=== PATIENT | male | born 1935 | race Two or more races ===

== ENCOUNTER 2018-04-06 23:02 | Inpatient (IN) | payer OTHER ==
[~2018-04-06] VITALS: Ht 177.8 cm; Wt 89.8 kg
--- NOTE | 2018-04-06 23:15 | NUR ---
PT BIB RA. COMP OF "HAVING CHEST PAIN" HXOF [place]. NO SOB NOTED. NO ACUTE DISTRESS AT THIS TIME. EKG DONE. LABS DRAWN. AWARE OF PT CONDITION. PT AOX4. AWAITING EVAL.
--- NOTE | 2018-04-06 23:20 | NUR ---
AT BEDSIDE FOR EVAL.
[2018-04-06] MEDS ORDERED: HYDROMORPHONE 1 MG/1 ML DISP.SYRIN ONE (23:24)
[2018-04-06] MEDS ORDERED: NTG 50 MG/D5W250 ML BOTTL 250 ML IV ONE ×2 (23:24→23:30)
[2018-04-06] MEDS ORDERED: NITROGLYCERIN 0.4 MG/TAB BOTTLE ONE (23:24)
[2018-04-06] MEDS ORDERED: ONDANSETRON HCL/PF 4 MG/2 ML VIAL ONE (23:24)
[2018-04-06] MEDS ORDERED: IV NS 0.9% 500 ML BAG IV ONE (23:30)
[2018-04-06] MEDS ORDERED: NITROGLYCERIN 0.4 MG/TAB BOTTLE SL ONE (23:30)
[2018-04-06] MEDS ORDERED: ONDANSETRON HCL/PF 4 MG/2 ML VIAL IVP ONE (23:30)
[2018-04-06] MEDS ORDERED: HYDROMORPHONE INJ 2 MG/ML DISP.SYRIN IV ONE (23:30)
[2018-04-06] MEDS ORDERED: ASPIRIN 81 MG TAB.CHEW PO ONE (23:30)
--- NOTE | 2018-04-06 23:32 | NUR ---
PT PLACED ON NITRO DRIP. WILL REASSESS
[2018-04-06 23:34] LABS: BASOPHILS # (AUTO) 0.1 /CMM (0.0-0.2); EOSINOPHILS % (AUTO) 3.7 % (0.0-6.0); HEMATOCRIT 39 % (39-51); HEMOGLOBIN 13.2 g/dL (13.5-17.5); LYMPHOCYTES # (AUTO) 1.6 /CMM (0.8-4.8); LYMPHOCYTES % (AUTO) 24.9 % (20.0-44.0); MEAN CORPUSCULAR HGB CONC 34 g/dl (31.0-36.0); MEAN CORPUSCULAR VOLUME 95 fL (80-96); MONOCYTES # (AUTO) 0.4 /CMM (0.1-1.30); MONOCYTES % (AUTO) 6.2 % (2.0-12.0); NEUTROPHILS # (AUTO) 4.1 /CMM (1.8-8.9); NEUTROPHILS % (AUTO) 64.2 % (43.0-81.0); PLATELET COUNT (AUTO) 177 /CMM (150-450); RED BLOOD CELL COUNT(AUTO) 4.11 MIL/uL (4.5-6.0); WHITE BLOOD COUNT (AUTO) 6.4 K/uL (4.3-11.0)
[2018-04-06 23:40] LABS: CALCIUM, SERUM 8.8 mg/dL (8.5-10.1); CARBON DIOXIDE 30 mmol/L (21-32); CHLORIDE 109 mmol/L (98-107); GLUCOSE 180 mg/dL (74-106); POTASSIUM 4.6 mmol/L (3.5-5.1); SODIUM SERUM 143 mmol/L (136-145); UREA NITROGEN, BLOOD 21 mg/dL (7-18)
[2018-04-06] MEDS ORDERED: METOCLOPRAMIDE HCL 10 MG/2 ML VIAL ONE (23:42)
[2018-04-06 23:53] LABS: ALANINE AMINOTRANSFERASE 28 U/L (12-78); ALBUMIN 3.3 g/dL (3.4-5.0); ALKALINE PHOSPHATASE 76 U/L (46-116); ASPARTATE AMINOTRANSFERASE 16 U/L (15-37); B-TYPE NATRIURETIC PEPTIDE 470 PG/ML (0-125); BILIRUBIN,DIRECT 0.2 mg/dL (0.0-0.2); BILIRUBIN,TOTAL 0.9 mg/dL (0.2-1.0); TOTAL PROTEIN, SERUM 6.3 g/dL (6.4-8.2)
[2018-04-07] MEDS ORDERED: METOCLOPRAMIDE HCL 10 MG/2 ML VIAL IV ONE
[2018-04-07 00:05] LABS: D-DIMER 0.24 mg/L(FEU (0.17-0.50)
--- NOTE | 2018-04-07 00:19 | NUR ---
CALLED TONG REHMAN
[2018-04-07] MEDS ORDERED: MAG HYDROX/AL HYDROX/SIMETH 30 ML UDC ONE (00:43)
[2018-04-07] MEDS ORDERED: LIDOCAINE VISCOUS 2% UD 15 ML UDC ONE (00:43)
[2018-04-07] MEDS ORDERED: DICYCLOMINE HCL 10 MG CAPSULE PO ONE ×2 (00:44→01:00)
[2018-04-07] MEDS ORDERED: FAMOTIDINE/PF INJ 20 MG/2 ML VIAL IV ONE ×2 (00:44→01:00)
[2018-04-07] MEDS ORDERED: IOHEXOL-350 100 ML VIAL IV ONE (00:47)
[2018-04-07] MEDS ORDERED: CT SWABBABLE VALVE TRANS SET 1 EA INFUS.SET MC ONE (00:48)
[2018-04-07] MEDS ORDERED: IV NS 0.9% 250 ML IV ONE (00:48)
[2018-04-07] MEDS ORDERED: LIDOCAINE VISCOUS 2% UD 15 ML UDC MM ONE (01:00)
[2018-04-07] MEDS ORDERED: MAG HYDROX/AL HYDROX/SIMETH 30 ML UDC PO ONE (01:00)
[2018-04-07] MEDS ORDERED: NITROGLYCERIN PACKET 1 GM PACKET ONE ×2 (01:13→01:15)
[2018-04-07] MEDS ORDERED: KETOROLAC TROMETHAMINE INJ 30 MG/ML VIAL IV PRN (01:30)
[2018-04-07] MEDS ORDERED: NITROGLYCERIN PACKET 1 GM PACKET TD ONE (01:30)
[2018-04-07] MEDS ORDERED: ONDANSETRON HCL/PF 4 MG/2 ML VIAL IVP PRN (01:30)
[2018-04-07] MEDS ORDERED: MORPHINE SULFATE INJ 4 MG/ML DISP.SYRIN IV PRN (01:30)
[2018-04-07] MEDS ORDERED: NITROGLYCERIN PACKET 1 GM PACKET TD PRN (01:30)
--- NOTE | 2018-04-07 02:23 | NUR ---
REPORT GIVEN TO RODGER BARRON.
[2018-04-07] MEDS ORDERED: ENOXAPARIN SODIUM 60 MG/0.6 ML DISP.SYRIN SQ ONE (03:00)
[2018-04-07 03:33] VITALS: BP 125/75
[2018-04-07 04:00] VITALS: BP 122/60
--- NOTE | 2018-04-07 04:23 | NUR ---
RN NOTE. ADMISSION.PT BEING ADMITTED FROM ER VIA GURNEY, CHEST PAIN. WELDING LEAD [place], ALERT, FOLLOW COMMANDS, MANAGER SPORTS SHOWING AFIB, CONTROLLED PT ON ROOM AIR. SAT 98%. NO ACUTE DISTRESS NOTED. IV LT HAND 18G AND 20G, SALINE LOCK. HOB ELEVATED. AT TIS TIME NO COMPLAINTS OF CHEST PAIN. AFEBRILE. WILL CONTINUE TO MONITOR VITALS.
--- NOTE | 2018-04-07 06:42 | NUR ---
RN NOTE. PT C/O CHEST PAIN NITRO PATCH APPLIED. INJ TORADOL 15MG IV GIVEN PER MD ORDERED.
[2018-04-07 07:52] LABS: PHOSPHORUS 2.8 mg/dL (2.5-4.9)
[2018-04-07 07:53] LABS: CALCIUM, SERUM 8.5 mg/dL (8.5-10.1); CARBON DIOXIDE 24 mmol/L (21-32); CHLORIDE 107 mmol/L (98-107); CREATININE 0.9 mg/dL (0.6-1.3); GLUCOSE 124 mg/dL (74-106); POTASSIUM 4.3 mmol/L (3.5-5.1); SODIUM SERUM 141 mmol/L (136-145); UREA NITROGEN, BLOOD 20 mg/dL (7-18)
[2018-04-07 08:00] VITALS: BP 107/55
[2018-04-07] MEDS ORDERED: ASPIRIN EC 81 MG TABLET.DR PO SCH ×2 (09:00→12:00)
--- NOTE | 2018-04-07 09:00 | NUR ---
FUR FINISHER SEAMSTRESS RECEIVING NOTES RECEIVED PT FROM BEATRICE DASILVA.PT IS LYING ON BED.ALERT/ORIENTED X3.ON TELE HR IS 60 WITH CONTROLLED A FIB.NO SOB AND ACUTE DISTRESS NOTED.ON ROOM AIR,TOLERATING WELL.IV LINE IS ON LEFT AC G18 AND LEFT HAND G20,SITE IS CLEAN,DRY AND INTACT.NO INFILTRATION NOTED.SAFETY IS MAINTAINED AT ALL TIMES.BED IS IN LOW POSITION AND LOCKED.CALL LIGHT IS WITHIN REACH. WILL CONTINUE TO MONITOR THE PT CLOSELY.
[2018-04-07] MEDS: ENOXAPARIN SODIUM 100 MG/ML DISP.SYRIN SQ SCH ×2 (09:12→20:24)
[2018-04-07] MEDS ORDERED: ATORVASTATIN 40 MG TABLET PO SCH (10:30)
[2018-04-07 10:58] LABS: THYROID STIMULATING HORMONE 2.035 uIU/mL (0.358-3.74)
[2018-04-07] MEDS: CARVEDILOL 3.125 MG TABLET PO SCH ×2 (11:19→20:24)
[2018-04-07 12:00] VITALS: BP 107/45
[2018-04-07] MEDS: NITROGLYCERIN 30 GM TUBE TP SCH ×2 (12:32→20:47)
[2018-04-07] MEDS: MORPHINE SULFATE INJ 4 MG/ML DISP.SYRIN IV PRN ×4 (12:34→20:47)
--- NOTE | 2018-04-07 12:35 | NUR ---
TELEGRAPH MESSENGER NOTES C/O ABDOMINAL PAIN,DR.[place] ORDERED TO GIVE IV MORPHINE SULPHATE 2MG IV.NEW ORDERS NOTED AND CARRIED OUT.
[2018-04-07] MEDS ORDERED: PANTOPRAZOLE 40 MG VIAL IV SCH (13:00)
[2018-04-07 16:00] VITALS: BP 118/54
--- NOTE | 2018-04-07 18:12 | NUR ---
VIDEO PLAYER MECHANIC NOTES [facility]PORT [facility] AND FAMILY MADE AWARE.
--- NOTE | 2018-04-07 18:52 | NUR ---
MANAGER PAYER CLOSING NOTES PT IS ON BED.ON ROOM AIR,TOLERATING WELL.NO SOB AND ACUTE DISTRESS NOTED,DENIES CHEST PAIN NOW.PLANNING TO TRANSFER [facility] @1999.DAUGHTER IS AT BEDSIDE,CAN USE URINAL INDEPENDENTLY.IV LINE IS ON PLACE.RESPIRATION IS EVEN AND NON LABORED.ENDORSED TO COMMISSIONED DEFENCE FORCE OFFICER BEATRICE MEDINA FOR GREGORY AND TRANSFER DETAILS.
[2018-04-07 20:00] VITALS: BP_SYST 126; BP_DIAS 48; BP_DIAS 52
--- NOTE | 2018-04-07 20:00 | NUR ---
RN/TELE NOTES: RECEIVED PT. IN BED W/ HOB ELEVATED W/ DAUGHTER GREGORIA AT BEDSIDE. ON TELE MONITOR W/ AFIB CONTROLLED. A/O X 4. QUILEUTE. VERBALLY RESPONSIVE. ABLE TO MAKE NEEDS KNOWN. W/ HL ON LAC PATENT AND INTACT W/NO S/S OF INFECTION/INFILTRATION NOTED. HL ON LH D/C. PT. IS FELICIA. TO TRANSFER TO [facility] FOR [facility]ARDIAC CATH. WILL CONTINUE TO MONITOR.
--- NOTE | 2018-04-07 20:30 | NUR ---
RN/TELE NURSE: PT. LEFT VIA STRETCHER W/ 3 EMT STAFF. PT. LEFT IN STABLE CONDITION. A/O X 4. STABLE AND VERBALLY RESPONSIVE.
== END 2018-04-07 20:30 | disposition short-term general hospital (02) | DRG 303 ==
LOC: ER 23:04 → TELE-TD 04-07 01:19 → TELE1 04-07 10:27
PROVIDERS: ADMIT Student in an Organized Health Care Education/Training Program; ATTEND Student in an Organized Health Care Education/Training Program
DX: I25.10 Atherosclerotic heart disease of native coronary artery without angina pectoris (principal); E44.1 Mild protein-calorie malnutrition; K21.9 Gastro-esophageal reflux disease without esophagitis; E78.5 Hyperlipidemia, unspecified; I10 Essential (primary) hypertension; D64.9 Anemia, unspecified; Z68.28 Body mass index [BMI] 28.0-28.9, adult; Z98.61 Coronary angioplasty status; R60.9 Edema, unspecified; Z96.652 Presence of left artificial knee joint; Z88.0 Allergy status to penicillin; K46.9 Unspecified abdominal hernia without obstruction or gangrene; M19.90 Unspecified osteoarthritis, unspecified site; I25.2 Old myocardial infarction; I48.2 Chronic atrial fibrillation; Z87.891 Personal history of nicotine dependence
CPT/HCPCS: 36415; 71045-TC; 80048-TC; 80061-TC; 80076-TC; 83735-TC; 83880; 84100-TC; 84439-TC; 84443-TC; 84484-TC; 85025-TC; 85378-TC; 85730-TC; 87081-TC; 93307-TC; 93970-TC; A6402; C9113; G0378; J1170; J1650; J1885; J2270; J2405; J2765; J3490; J7040; J7050; Q9967